=== PATIENT | female | born 1985 | race African-American/Black ===

== ENCOUNTER 2016-03-25 23:37 | Emergency (ER) | payer MEDICAID ==
[~2016-03-25] VITALS: Ht 170.2 cm; Wt 70.3 kg
[~2016-03-25 23:37] MED LIST: NAPROXEN SODIU550 M1 ORAL; NAPROXEN500 M2 ORAL; NKM; NORCO 5-325 TA1 EACH ORAL
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
[2016-03-26] MEDS ORDERED: Metoclopramide 10mg/2ml Inj IVP ONE (00:15)
[2016-03-26] MEDS ORDERED: Tubing IV Cassette IV ONE (00:25)
[2016-03-26 00:27] LABS: APPEARANCE,URINE CLEAR; KETONES,URINE NEGATIVE (NEGATIVE); LEUKOCYTE ESTERASE ,URINE NEGATIVE (NEGATIVE); NITRITE,URINE NEGATIVE (NEGATIVE); PH,URINE 7 (4.5-8.0); PROTEIN,URINE NEGATIVE (NEGATIVE); UROBILINOGEN,URINE 1 MG/DL (0.0-1.0)
[2016-03-26 00:31] LABS: BASOPHILS % (AUTO) 1.3 % (0.0-2.0); EOSINOPHILS % (AUTO) 5.3 % (0.0-3.0); MEAN CORPUSCULAR HEMOGLOBIN 34.3 PG (27.0-31.0); MEAN CORPUSCULAR VOLUME 101 FL (80-99); MEAN PLATELET VOLUME 6.6 FL (6.5-10.1); MONOCYTES % (AUTO) 8.5 % (1.0-10.0); PLATELET COUNT 306 K/UL (150-450); RED CELL DISTRIBUTION WIDTH 11.9 % (11.6-14.8); WHITE BLOOD COUNT 7.8 K/UL (4.8-10.8)
[2016-03-26 00:48] LABS: ALANINE AMINOTRANSFERASE 13 U/L (3-33); ALBUMIN/GLOBULIN RATIO 1.3 (1.0-2.7); ANION GAP 11 (5-15); ASPARTATE AMINO TRANSFERASE 20 U/L (5-40); CALCIUM 9.2 mg/dL (8.6-10.2); CARBON DIOXIDE 28 mEQ/L (20-30); CHLORIDE 101 mEQ/L (98-107); CREATININE 1.3 mg/dL (0.5-0.9); GLOMERULAR FILTRATION RATE 57.6 mL/min (>60); HEMOLYSIS 30; LIPASE 35 U/L (< 60); POTASSIUM 4.4 mEQ/L (3.4-4.9); SODIUM 140 mEQ/L (135-145); TOTAL PROTEIN 6.9 g/dL (6.6-8.7)
[2016-03-26 01:30] VITALS: BP 122/93
[2016-03-26 01:35] VITALS: BP 122/93
--- NOTE | 2016-03-26 12:50 | Diagnostic Imaging Report ---
Clinical Indication: PAIN Technique: No oral contrast utilized, per emergency room physician request IV administration nonionic contrast. Venous phase spiral acquisition obtained through the abdomen and pelvis. Multiplanar reconstructions were generated. Total dose length product 713 mGycm. CTDIvol(s) 14 mGy Comparison: None Findings: The appendix is normal. There is no evidence of diverticulosis or diverticulitis. No small bowel distention. There is trace free pelvic fluid. No free or loculated intraperitoneal air. Distal esophagus, stomach, duodenum are unremarkable. The gallbladder is nondistended. The liver, bile ducts, pancreas, spleen, adrenals, kidneys are unremarkable. 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 Uterus and ovaries are unremarkable. No pelvic or retroperitoneal mass or adenopathy. The included lung bases are clear. The bones are unremarkable. 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 The CT scanner at [facility] is accredited by the [employer] and the scans are performed using protocols designed to limit radiation exposure to as low as reasonably achievable to attain images of sufficient resolution adequate for diagnostic evaluation.
== END 2016-03-26 01:35 | disposition home or self-care (01) ==
LOC: EMR 23:55
DX: R10.9 Unspecified abdominal pain (principal); J06.9 Acute upper respiratory infection, unspecified; J45.909 Unspecified asthma, uncomplicated
CPT/HCPCS: 36415; 74177; 80053; 81003; 81025; 83690; 85025; 96374; 96375; 99284; J2765; Q9967

== ENCOUNTER 2016-05-18 11:55 | Emergency (ER) | payer MEDICAID ==
[~2016-05-18] VITALS: Ht 170.2 cm; Wt 65.8 kg
[2016-05-18 12:30] VITALS: BP 113/80
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
[2016-05-18] MEDS ORDERED: NORCO 5-325 TA1 EACH ORAL (15:19)
[2016-05-18 15:31] VITALS: BP 121/79
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
== END 2016-05-18 15:31 | disposition home or self-care (01) ==
LOC: EMR 12:57
DX: S09.90XA Unspecified injury of head, initial encounter (principal); S00.11XA Contusion of right eyelid and periocular area, initial encounter; J45.909 Unspecified asthma, uncomplicated; Y04.0XXA Assault by unarmed brawl or fight, initial encounter; Y92.9 Unspecified place or not applicable; Y99.8 Other external cause status
CPT/HCPCS: 70450; 70486; 81025; 99284

== ENCOUNTER 2018-08-26 17:50 | Emergency (ER) | payer MEDICAID ==
[~2018-08-26] VITALS: Ht 170.2 cm; Wt 61.2 kg
[2018-08-26 18:30] VITALS: BP 133/91
--- NOTE | 2018-08-26 18:30 | NUR ---
ED Nurse Note: pt walked in due to nausea and vomiting accompanied by abdominal pain started this morning. pt stated she drank beer yesterday and was not feeling good and was throwing up since the morning. pt is complaining of cramping pain and diarrhea. iv started on pt left ac, blood drawn and was sent to lab. pt able to give urine sample and was sent to lab. pt hooked on monitor with vs within normal limit.
[2018-08-26 18:49] LABS: HEMATOCRIT 41.4 % (37.0-47.0); HEMOGLOBIN 14.5 G/DL (12.0-16.0); MEAN CORPUSCULAR VOLUME 102 FL (80-99); PLATELET COUNT 215 K/UL (150-450); RED BLOOD COUNT 4.05 M/UL (4.20-5.40); RED CELL DISTRIBUTION WIDTH 11.4 % (11.6-14.8); WHITE BLOOD COUNT 7.5 K/UL (4.8-10.8)
--- NOTE | 2018-08-26 18:50 | NUR ---
ED Nurse Note: iv zofran and famotidine and ivf started as ordered. pt able to tolerate. will continue to monitor.
[2018-08-26 18:51] LABS: APPEARANCE,URINE CLOUDY; BASOPHILS % (AUTO) 0.9 % (0.0-2.0); BILIRUBIN, URINE NEGATIVE (NEGATIVE); EOSINOPHILS % (AUTO) 0.1 % (0.0-3.0); GLUCOSE, URINE (UA) NEGATIVE (NEGATIVE); KETONES,URINE 4+ (NEGATIVE); LEUKOCYTE ESTERASE ,URINE 1+ (NEGATIVE); LYMPHOCYTES % (AUTO) 8.5 % (20.0-45.0); MONOCYTES % (AUTO) 5.2 % (1.0-10.0); NEUTROPHILS % (AUTO) 85.3 % (45.0-75.0); NITRITE,URINE NEGATIVE (NEGATIVE); PH,URINE 5 (4.5-8.0); PROTEIN,URINE 3+ (NEGATIVE); UROBILINOGEN,URINE 1 MG/DL (0.0-1.0)
[2018-08-26 18:52] LABS: COLOR,URINE YELLOW
[2018-08-26 19:05] LABS: ANION GAP 16 mmol/L (5-15); BLOOD UREA NITROGEN 12 mg/dL (7-18); CALCIUM 9.3 MG/DL (8.5-10.1); CARBON DIOXIDE 26 MMOL/L (21-32); CHLORIDE 102 MMOL/L (98-107); POTASSIUM 4.4 MMOL/L (3.5-5.1); SODIUM 143 MMOL/L (136-145)
--- NOTE | 2018-08-26 19:05 | NUR ---
ED Nurse Note: Received Pt and report from day shift. Pt is AO x 4 times, on room air no distress, VSS. Will continue monitor.
[2018-08-26 19:09] LABS: ALANINE AMINOTRANSFERASE 49 U/L (12-78); ALBUMIN 4.4 G/DL (3.4-5.0); ALKALINE PHOSPHATASE 60 U/L (46-116); ASPARTATE AMINO TRANSFERASE 124 U/L (15-37); BILIRUBIN,TOTAL 0.7 MG/DL (0.2-1.0)
[2018-08-26] MEDS ORDERED: D5 1/2NS w/KCl 20mEq 1,000 ML IV SCH (19:30)
[2018-08-26] MEDS ORDERED: LORazepam Inj 2mg/ml 1ml IV ONE (19:45)
[2018-08-26] MEDS ORDERED: Isovue-300 100ml vial INJ PRN (19:45)
--- NOTE | 2018-08-26 19:47 | NUR ---
ED Nurse Note: Pt went to CT scan.
[2018-08-26] MEDS ORDERED: LORazepam 1mg tab ORAL ONE (20:45)
--- NOTE | 2018-08-26 20:51 | Diagnostic Imaging Report ---
EXAM: CT Abdomen and Pelvis With Intravenous Contrast CLINICAL HISTORY: PAIN TECHNIQUE: Axial computed tomography images of the abdomen and pelvis with intravenous contrast. CTDI is 0.15, 10.68 mGy and DLP is 525 mGy-cm. One or more of the following dose reduction techniques were used: automated exposure control, adjustment of the mA and/or kV according to patient size, use of iterative reconstruction technique. COMPARISON: CT abdomen and pelvis dated 03/26/2016 FINDINGS: Lung bases: Unremarkable. No mass. No consolidation. ABDOMEN: Liver: Decreased attenuation of the liver which may represent hepatic steatosis Gallbladder and bile ducts: Unremarkable. Pancreas: Unremarkable. Spleen: Unremarkable. Adrenals: Unremarkable. Kidneys and ureters: Unremarkable. Stomach and bowel: Apparent wall thickening of the small bowel which may represent nonspecific enteritis. The large bowel is decompressed. PELVIS: Appendix: Appendix is unremarkable. Bladder: Unremarkable. Reproductive: Unremarkable as visualized. ABDOMEN and PELVIS: Intraperitoneal space: Small amount of free fluid in the pelvis, likely physiologic. Bones/joints: No acute fracture. No dislocation. Soft tissues: Unremarkable. Vasculature: Unremarkable. No abdominal aortic aneurysm. Lymph nodes: Unremarkable. IMPRESSION: Apparent wall thickening of the small bowel which may represent nonspecific enteritis.
[2018-08-26] MEDS ORDERED: cefTRIAXone 1 GM in NS 55 ML IVPB ONE (21:00)
[2018-08-26] MEDS ORDERED: LIBRIUM10 MG ORAL (21:06)
[2018-08-26] MEDS ORDERED: OMEPRAZOLE20 M2 ORAL (21:06)
[2018-08-26] MEDS ORDERED: ONDANSETRON ODT4 MG BC (21:06)
[2018-08-26 21:16] VITALS: BP 128/83
--- NOTE | 2018-08-26 21:17 | NUR ---
ED Nurse Note: Provide warm blanket for Pt, VSS.
--- NOTE | 2018-08-26 21:19 | Emergency Room Report ---
History of Present Illness General Chief Complaint: Abdominal Pain Source: Patient Present Illness HPI Patient is 33-year-old female presented after increased lower abdominal pain. Patient had gradual onset of symptoms. She reports having recent increased alcohol intake and had a prior history of she reports having multiple episodes of nausea and vomiting. She denies any fever. Allergies: Coded Allergies: No Known Allergies (Unverified , 07/12/13) Patient History Past Medical History: see triage record Last Menstrual Period: 07/2018 Now: No Reviewed Nursing Documentation: PMH: Agreed; PSxH: Agreed Nursing Documentation-PMH Past Medical History: No History, Except For Hx Asthma: Yes Hx Seizures: Yes - last episode on 2015 Review of Systems All Other Systems: negative except mentioned in HPI Physical Exam Vital Signs Date Time Temp Pulse Resp B/P (MAP) Pulse Ox O2 Delivery O2 Flow Rate FiO2 08/26/18 17:55 98.4 122 20 146/100 (115) 98 Room Air Sp02 EP Interpretation: reviewed, normal General Appearance: normal inspection, well appearing, no apparent distress, alert, GCS 15 Head: atraumatic ENT: normal ENT inspection, hearing grossly normal, normal voice Neck: normal inspection, full range of motion, supple, no bony tend Respiratory: normal inspection, lungs clear, normal breath sounds, no respiratory distress, no retraction, no wheezing Cardiovascular #1: regular rate, rhythm, no edema Gastrointestinal: normal inspection, normal bowel sounds, non tender, soft, no guarding, no hernia Genitourinary: no CVA tenderness Musculoskeletal: normal inspection, back normal, normal range of motion Neurologic: normal inspection, alert, oriented x3, responsive, resin maker III-XII nml as tested, motor strength/tone normal, speech normal Psychiatric: normal inspection, judgement/insight normal, mood/affect normal Medical Decision Making Diagnostic Impression: Primary Impression: Alcohol abuse Additional Impression: Enteritis ER Course Patient presented for abdominal pain. Differential diagnosis include is not limited to gastritis, ulcer, urinary tract infection, appendicitis among others. Because of complexity of patient's case laboratory testing and imaging studies were ordered. Patient's laboratory testing showed some evidence of urinary infection. Patient was noted to have normal white blood count. CT of the abdomen pelvis showed some wall thickening of the small bowel which may represent enteritis. Large bowel was decompressed. Appendix is unremarkable. Patient was given IV fluids as well as oral Ativan. She was noted to have some history of alcohol abuse and appears to have some mild alcohol withdrawal. She did not appear to be significantly tremulous. Patient was given prescription for oral antibiotics as well as acid blockers. She advised to follow-up with her primary care physician for recheck. She appears to be stable for discharge. Labs Test 08/26/18 18:27 White Blood Count 7.5 K/UL (4.8-10.8) Red Blood Count 4.05 M/UL (4.20-5.40) Hemoglobin 14.5 G/DL (12.0-16.0) Hematocrit 41.4 % (37.0-47.0) Mean Corpuscular Volume 102 FL (80-99) Mean Corpuscular Hemoglobin 35.7 PG (27.0-31.0) Mean Corpuscular Hemoglobin Concent 34.9 G/DL (32.0-36.0) Red Cell Distribution Width 11.4 % (11.6-14.8) Platelet Count 215 K/UL (150-450) Mean Platelet Volume 4.9 FL (6.5-10.1) Neutrophils (%) (Auto) 85.3 % (45.0-75.0) Lymphocytes (%) (Auto) 8.5 % (20.0-45.0) Monocytes (%) (Auto) 5.2 % (1.0-10.0) Eosinophils (%) (Auto) 0.1 % (0.0-3.0) Basophils (%) (Auto) 0.9 % (0.0-2.0) Urine Color Yellow Urine Appearance Cloudy Urine pH 5 (4.5-8.0) Urine Specific [place] 1.030 (1.005-1.035) Urine Protein 3+ (NEGATIVE) Urine Glucose (UA) Negative (NEGATIVE) Urine Ketones 4+ (NEGATIVE) Urine Blood 3+ (NEGATIVE) Urine Nitrite Negative (NEGATIVE) Urine Bilirubin Negative (NEGATIVE) Urine Urobilinogen 1 MG/DL (0.0-1.0) Urine Leukocyte Esterase 1+ (NEGATIVE) Urine RBC 5-10 /HPF (0 - 2) Urine WBC 2-4 /HPF (0 - 2) Urine Squamous Epithelial Cells Many /LPF (NONE/OCC) Urine Bacteria Few /HPF (NONE) Urine Mucus Many /LPF (NONE/OCC) Urine HCG, Qualitative Negative (NEGATIVE) Sodium Level 143 MMOL/L (136-145) Potassium Level 4.4 MMOL/L (3.5-5.1) Chloride Level 102 MMOL/L (98-107) Carbon Dioxide Level 26 MMOL/L (21-32) Anion Gap 16 mmol/L (5-15) Blood Urea Nitrogen 12 mg/dL (7-18) Creatinine 1.0 MG/DL (0.55-1.30) Estimat Glomerular Filtration Rate > 60 mL/min (>60) Glucose Level 91 MG/DL (74-106) Calcium Level 9.3 MG/DL (8.5-10.1) Magnesium Level 1.6 MG/DL (1.8-2.4) Total Bilirubin 0.7 MG/DL (0.2-1.0) Aspartate Amino Transf (AST/SGOT) 124 U/L (15-37) Alanine Aminotransferase (ALT/SGPT) 49 U/L (12-78) Alkaline Phosphatase 60 U/L (46-116) Total Protein 8.7 G/DL (6.4-8.2) Albumin 4.4 G/DL (3.4-5.0) Globulin 4.3 g/dL Albumin/Globulin Ratio 1.0 (1.0-2.7) Lipase 103 U/L (73-393) Urine Opiates Screen Negative (NEGATIVE) Urine Barbiturates Screen Negative (NEGATIVE) Phencyclidine (PCP) Screen Negative (NEGATIVE) Urine Amphetamines Screen Negative (NEGATIVE) Urine Benzodiazepines Screen Negative (NEGATIVE) Urine Cocaine Screen Negative (NEGATIVE) Urine Marijuana (THC) Screen Negative (NEGATIVE) Last Vital Signs Date Time Temp Pulse Resp B/P (MAP) Pulse Ox O2 Delivery O2 Flow Rate FiO2 08/26/18 18:30 98.4 93 15 133/91 97 Room Air Status: improved Disposition: HOME, SELF-CARE Condition: Stable Scripts Chlordiazepoxide Hcl* (LIBRIUM*) 10 Mg Capsule 10 MG ORAL THREE TIMES A DAY, #15 CAP 0 Refills Prov: Andres Beard MD 08/26/18 Ondansetron Odt* (ZOFRAN ODT*) 4 Mg Tab.rapdis 4 MG BC EVERY 8 HOURS PRN for Nausea & Vomiting, #10 TAB 0 Refills Prov: Andres Beard MD 08/26/18 Omeprazole (OMEPRAZOLE) 20 Mg Capsule.dr 20 MG ORAL DAILY, #30 CAP Prov: Andres Beard MD 08/26/18 Patient Instructions: Gastritis, Adult Andres Beard MD Aug 26, 2018 21:18
[2018-08-26 21:42] VITALS: BP 128/83
--- NOTE | 2018-08-26 21:43 | NUR ---
ER DISCHARGE NOTE: Patient is cleared to be discharged per ERMD, pt is aox4, on room air, with stable vital signs. pt was given dc and prescription instructions, pt was able to verbalize understanding, pt id band and iv site removed without complications. pt is able to ambulate with steady gait. pt took all belongings. Pt will wait her father to pick her up in waiting room.
== END 2018-08-26 21:42 | disposition home or self-care (01) ==
LOC: EMR 18:23
DX: F10.10 Alcohol abuse, uncomplicated (principal); K52.9 Noninfective gastroenteritis and colitis, unspecified; G40.909 Epilepsy, unspecified, not intractable, without status epilepticus
CPT/HCPCS: 36415; 74177; 80053; 80307; 81003; 81025; 83690; 83735; 85025; 96361; 96365; 96366; 96368; 96375; 99284; J0696; J2405; Q9967; S0028